=== PATIENT | male | born 1935 | race Caucasian/White ===

== ENCOUNTER 2021-06-10 05:51 | Day surgery (SDC) | payer OTHER ==
[~2021-06-10] VITALS: Ht 170.2 cm; Wt 88.0 kg
[2021-06-10] MEDS ORDERED: ELIQUIS5 M2 PO (06:37)
[2021-06-10] MEDS ORDERED: METF500 PO (06:37)
--- NOTE | 2021-06-10 08:55 | NUR ---
PT SITTING UP RECLINER. RIGHT RADIAL TR BAND SITE SOFT NON-TENDER WITH NO HEMATOMA, NO PULSATILE BLEEDING AND WRIST BOARD IN PLACE. PT DRINKING COFFEE. PT DENIES CHEST PAIN. CALL LIGHT IN REACH.
--- NOTE | 2021-06-10 10:01 | NUR ---
11 CC OF AIR REMOVED OVER SEVEN MIN. FROM NOW DEFLATED R TR BAND; SOFT NO HEMATOMA, NO PULSATILE BLEEDING WITH WRIST BOARD IN PLACE. DISCHARGE INSTRUCTIONS REVIEWED AND ALL QUESTIONS ANSWERED.
--- NOTE | 2021-06-10 11:00 | NUR ---
DEFLATED R TR BAND REMOVED AND POLYMEM PLACED OVER RIGHT RADIAL SITE WITH WRIST BOARD IN PLACE - NO HEMATOMA, NO PULSATILE BLEEDING SOFT. 20 G IV REMOVED FROM LEFT AC WITH INTACT CANNULA. PT ESCORTED OUT VIA WHEELCHAIR ESCORT.
== END 2021-06-10 11:00 | disposition home or self-care (01) ==
LOC: MHTC 05:51
DX: I25.10 Atherosclerotic heart disease of native coronary artery without angina pectoris (principal); I48.19 Other persistent atrial fibrillation; E11.9 Type 2 diabetes mellitus without complications; I10 Essential (primary) hypertension; Z79.01 Long term (current) use of anticoagulants; Z87.891 Personal history of nicotine dependence; Z88.8 Allergy status to other drugs, medicaments and biological substances; E66.9 Obesity, unspecified; Z68.31 Body mass index [BMI] 31.0-31.9, adult
CPT/HCPCS: 76937; 85347; 93454; 93571; 99152; 99153; A9270; C1769; C1887; C1894; J1644; J2250; J3010; J7030; J7050; Q9967

== ENCOUNTER 2021-09-13 03:51 | Emergency (ER) | payer OTHER ==
[~2021-09-13] VITALS: Ht 167.6 cm; Wt 85.3 kg
[~2021-09-13 03:51] MED LIST: ELIQUIS5 M2 PO; METF500 PO
[2021-09-13] MEDS ORDERED: AMLODIPINE BESYL5 MG PO (04:30)
[2021-09-13] MEDS ORDERED: ATORVASTATIN CA20 MG PO (04:30)
[2021-09-13] MEDS ORDERED: DICLOFENAC SOD100 G1 TP (04:30)
[2021-09-13] MEDS ORDERED: LOSA25 (04:31)
[2021-09-13] MEDS ORDERED: METO25ER (04:31)
[2021-09-13] MEDS ORDERED: HYDCHL25 PO (04:31)
[2021-09-13 04:57] LABS: Source, Urine Clean Catch
[2021-09-13 04:59] LABS: BASOPHILS ABSOLUTE AUTO 0.03 K/mm3 (0.00-0.23); BASOPHILS PERCENT AUTO 0 % (0-2); EOSINOPHILS ABSOLUTE AUTO 0.09 K/mm3 (0.00-0.68); EOSINOPHILS PERCENT AUTO 1 % (0-6); Hematocrit 39.6 % (37.0-53.0); Hemoglobin 12.4 g/dL (13.5-17.5); IMMATURE GRAN ABSOLUTE AUTO 0.02 K/mm3 (0.00-0.10); IMMATURE GRAN PERCENT AUTO 0 % (0-1); LYMPHOCYTES ABSOLUTE AUTO 1.08 K/mm3 (0.84-5.20); LYMPHOCYTES PERCENT AUTO 13 % (21-46); MONOCYTES ABSOLUTE AUTO 0.58 K/mm3 (0.16-1.47); MONOCYTES PERCENT AUTO 7 % (4-13); Mean Corpuscular HGB 29.7 pg (26.0-34.0); Mean Corpuscular HGB Conc 31.3 g/dL (31.5-36.5); Mean Corpuscular Volume 95 fL (80-100); Mean Platelet Volume 10.2 fL (9.1-12.4); NEUTROPHILS ABSOLUTE AUTO 6.24 K/mm3 (1.96-9.15); NEUTROPHILS PERCENT AUTO 78 % (41-73); Platelet Count 236 K/mm3 (150-400); RDW Standard Deviation 52.3 fL (35.1-46.3); Red Blood Cell Count 4.18 M/mm3 (4.30-5.90); White Blood Cell Count 8.04 K/mm3 (4.00-11.30)
[2021-09-13 05:15] LABS: Albumin, Blood 4.1 g/dL (3.4-5.0); Bilirubin, Total 0.8 mg/dL (0.1-1.0); Bun/Creatinine Ratio 18.8 (12.0-20.0); Calcium, Blood 9.6 mg/dL (8.5-10.1); Creatinine, Blood 1.17 mg/dL (0.60-1.20); Globulin, Blood 4.2 g/dL (2.2-4.0); Potassium, Blood 3.6 mmol/L (3.5-5.5); Total Protein, Blood 8.3 g/dL (6.4-8.2)
[2021-09-13 05:27] LABS: Bilirubin, Urine Neg (Neg); Blood, Urine 4+ (Neg); Glucose Qualitative, Urine 4+ (Neg); Ketones, Urine 1+ (Neg); Leukocyte Esterase, Urine Neg (Neg); Nitrite, Urine Neg (Neg); Protein, Urine 1+ (Neg); Specific Gravity, Urine 1.015 (1.003-1.022); Urobilinogen, Urine NORM (Normal)
[2021-09-13 05:31] LABS: Magnesium, Blood 2.2 mg/dL (1.6-2.4)
[2021-09-13 05:38] LABS: Appearance, Urine Clear (Clear); Bacteria Few /hpf; Color, Urine Yellow (P-Yellow); Red Blood Cells, Urine 25-50 /hpf (0-2); Squamous Epithelial Cells Rare /hpf (Few)
[2021-09-13] MEDS ORDERED: POTA10T PO (08:28)
[2021-09-13] MEDS ORDERED: FURO20 PO (08:28)
== END 2021-09-13 08:45 | disposition home or self-care (01) ==
LOC: ER 03:51
PROVIDERS: Student in an Organized Health Care Education/Training Program
DX: I48.91 Unspecified atrial fibrillation (principal); I50.9 Heart failure, unspecified; Z88.8 Allergy status to other drugs, medicaments and biological substances; Z79.899 Other long term (current) drug therapy; Z79.84 Long term (current) use of oral hypoglycemic drugs; Z95.5 Presence of coronary angioplasty implant and graft
CPT/HCPCS: 36415; 71046; 80053; 81001; 83735; 83880; 84484; 85025; 93005; 93010; J1940

== ENCOUNTER 2021-09-17 22:54 | Observation (INO) | payer OTHER ==
[~2021-09-17] VITALS: Ht 167.6 cm; Wt 84.6 kg
[~2021-09-17 22:54] MED LIST changes: +AMLODIPINE BESYL5 MG PO; +ATORVASTATIN CA20 MG PO; +DICLOFENAC SOD100 G1 TP; +FURO20 PO; +HYDCHL25 PO; +LOSA25; +METO25ER; +POTA10T PO
[2021-09-17 23:27] LABS: BASOPHILS ABSOLUTE AUTO 0.03 K/mm3 (0.00-0.23); BASOPHILS PERCENT AUTO 0 % (0-2); EOSINOPHILS ABSOLUTE AUTO 0.01 K/mm3 (0.00-0.68); EOSINOPHILS PERCENT AUTO 0 % (0-6); Hematocrit 38.3 % (37.0-53.0); Hemoglobin 12.2 g/dL (13.5-17.5); IMMATURE GRAN ABSOLUTE AUTO 0.03 K/mm3 (0.00-0.10); IMMATURE GRAN PERCENT AUTO 0 % (0-1); LYMPHOCYTES PERCENT AUTO 17 % (21-46); MONOCYTES ABSOLUTE AUTO 0.69 K/mm3 (0.16-1.47); MONOCYTES PERCENT AUTO 9 % (4-13); Mean Corpuscular HGB 30.1 pg (26.0-34.0); Mean Corpuscular HGB Conc 31.9 g/dL (31.5-36.5); Mean Corpuscular Volume 95 fL (80-100); Mean Platelet Volume 10.6 fL (9.1-12.4); NEUTROPHILS PERCENT AUTO 73 % (41-73); Platelet Count 265 K/mm3 (150-400); RDW Coefficient Variation 14.7 % (11.7-14.2); RDW Standard Deviation 51.3 fL (35.1-46.3); Red Blood Cell Count 4.05 M/mm3 (4.30-5.90); White Blood Cell Count 7.76 K/mm3 (4.00-11.30)
[2021-09-17 23:41] LABS: Albumin, Blood 3.6 g/dL (3.4-5.0); Albumin/Globulin Ratio 0.9 (0.8-1.8); Bilirubin, Total 0.9 mg/dL (0.1-1.0); Bun/Creatinine Ratio 25.5 (12.0-20.0); Calcium, Blood 9.1 mg/dL (8.5-10.1); Creatinine, Blood 1.96 mg/dL (0.60-1.20); Globulin, Blood 3.8 g/dL (2.2-4.0); Potassium, Blood 3.9 mmol/L (3.5-5.5); Total Protein, Blood 7.4 g/dL (6.4-8.2)
--- NOTE | 2021-09-18 03:54 | NUR ---
SHIFT SUMMARY PT ER ADMIT THIS SHIFT FOR CHF EXACERBATION. ADMISSION IS COMPLETE. PT IS ON RA AT THIS TIME, SATS WNL. RESP E/U. LUNGS ARE DIMINISHED, HE DENIES SOB AT THIS TIME AND STATES ONLY WITH EXERTION. PT RECEIVED 40 MG OF LASIKS IN THE ER. PT AFIB ON TELE RATE IS CONTROLLED IN THE LOW 100'S, PT HAS HX OF AFIB. PT IS SETTLED IN BED, HE HAS BEEN PROVIDED WITH SNACKS AND BEVERAGES PER HIS REQUEST. HE DENIES PAIN. BED IN LOWEST POSITION, CALL AKHIL LANDRY.
[2021-09-18 04:44] LABS: BASOPHILS ABSOLUTE AUTO 0.03 K/mm3 (0.00-0.23); BASOPHILS PERCENT AUTO 0 % (0-2); EOSINOPHILS ABSOLUTE AUTO 0.02 K/mm3 (0.00-0.68); EOSINOPHILS PERCENT AUTO 0 % (0-6); Hematocrit 38.5 % (37.0-53.0); Hemoglobin 12.5 g/dL (13.5-17.5); IMMATURE GRAN ABSOLUTE AUTO 0.02 K/mm3 (0.00-0.10); IMMATURE GRAN PERCENT AUTO 0 % (0-1); LYMPHOCYTES PERCENT AUTO 13 % (21-46); MONOCYTES PERCENT AUTO 10 % (4-13); Mean Corpuscular HGB 30.3 pg (26.0-34.0); Mean Corpuscular HGB Conc 32.5 g/dL (31.5-36.5); Mean Corpuscular Volume 93 fL (80-100); Mean Platelet Volume 10.6 fL (9.1-12.4); NEUTROPHILS ABSOLUTE AUTO 6.04 K/mm3 (1.96-9.15); NEUTROPHILS PERCENT AUTO 76 % (41-73); Platelet Count 256 K/mm3 (150-400); RDW Coefficient Variation 14.7 % (11.7-14.2); RDW Standard Deviation 50.3 fL (35.1-46.3); Red Blood Cell Count 4.13 M/mm3 (4.30-5.90); White Blood Cell Count 7.91 K/mm3 (4.00-11.30)
[2021-09-18 05:02] LABS: Albumin, Blood 3.6 g/dL (3.4-5.0); Bilirubin, Total 0.8 mg/dL (0.1-1.0); Bun/Creatinine Ratio 27.8 (12.0-20.0); Calcium, Blood 9.3 mg/dL (8.5-10.1); Creatinine, Blood 1.87 mg/dL (0.60-1.20); Globulin, Blood 3.7 g/dL (2.2-4.0); Potassium, Blood 3.5 mmol/L (3.5-5.5); Total Protein, Blood 7.3 g/dL (6.4-8.2)
--- NOTE | 2021-09-18 17:56 | NUR ---
PATIENT STATES WHEN HE TRIES TO REST, OR WHEN HE "NODS OFF" HE BECMES SOB. HE STATES THAT HE DOES USE A CPAP AT HOME. CALL PLACED TO PROVIDER WHO ORDERED CPAP AND PROTOCOL OXYGEN. PATIENTS FAMILY UNABLE TO BRING HOME CPAP-RT NOTIFIED. STATES THAT THEY WILL LET RT ANIRUDH KNOW AND SHE WILL COME SET UP A CPAP FOR OUR PATIENT. CURRENTLY PATIENT IS RESTING, AFTER A BUSY DAY WITH COMPANY. HE IS USING O2 AT 2 L NC DURING REST. LS SOUND DIMINISHED, BUT NOT TO WET. XRAY DOES ENDORSE SOME FLUID IN LUNG. PATIENT HAS QUESTIONS ABOUT HIS HOME METFORMIN DOSE "4000MG DAILY" (NOT RECEIVING METFORMIN HERE DUE TO KIDNEY FUNCTION PER DR. ALY, BUT INSTEAD RECEIVING INSULIN WHICH HE NORMALLY DOSEN'T TAKE AT HOME). PATIENT HAS NO OTHER MEDICAL CONCERNS.
[2021-09-19 05:08] LABS: Hematocrit 38.2 % (37.0-53.0); Hemoglobin 12.4 g/dL (13.5-17.5); Mean Corpuscular HGB 30.2 pg (26.0-34.0); Mean Corpuscular HGB Conc 32.5 g/dL (31.5-36.5); Mean Corpuscular Volume 93 fL (80-100); Mean Platelet Volume 10.2 fL (9.1-12.4); Platelet Count 256 K/mm3 (150-400); RDW Coefficient Variation 14.8 % (11.7-14.2); Red Blood Cell Count 4.11 M/mm3 (4.30-5.90); White Blood Cell Count 8.12 K/mm3 (4.00-11.30)
--- NOTE | 2021-09-19 05:26 | NUR ---
SHIFT SUMMARY NOC: PT SLEPT MOST OF NIGHT. PT PLEASANT AND COMPLIANT WITH CARE. 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
[2021-09-19 06:05] LABS: Bun/Creatinine Ratio 35.2 (12.0-20.0); Calcium, Blood 9.2 mg/dL (8.5-10.1); Creatinine, Blood 1.59 mg/dL (0.60-1.20); Potassium, Blood 3.3 mmol/L (3.5-5.5)
--- NOTE | 2021-09-19 10:07 | NUR ---
ANESTHESIOLOGY TECH JUST CALLED AND REPORTED PATIENT HAD A RUN 160 V-TACK. PATIENT IS OKAY, USING THE BR AT THIS TIME AND REPORTS NO PROBLEM. HE DID JUST TAKE K-DUR 40, ABOUT 20 MINUTES AGO AND IS HAVING A BOWEL MOVEMENT AT THIS TIME.
--- NOTE | 2021-09-19 17:24 | NUR ---
DISCHARGE- PATIENT RECEIVED DISCHARGE INSTRUCTIONS INCLUDING MEDICATION DIRECTION, FOLLOW APPOINTMENTS TO BE SCHEDULED AND INFORMATION ABOUT HIS CHF. IV WAS REMOVED WITHOUT CONCERN. PATIENT WAS WHEELED DOWN TO THE EXIT WHERE FAMILY WAS WAITING TO TRANSPORT HOME. HE LEFT THE FACILITY APROX [id number].
== END 2021-09-19 16:48 | disposition home or self-care (01) ==
LOC: ER 22:54 → MEDS 22:55
PROVIDERS: Internal Medicine; Student in an Organized Health Care Education/Training Program; ADMIT Family Medicine
DX: I13.0 Hypertensive heart and chronic kidney disease with heart failure and stage 1 through stage 4 chronic kidney disease, or unspecified chronic kidney disease (principal); E11.22 Type 2 diabetes mellitus with diabetic chronic kidney disease; I50.23 Acute on chronic systolic (congestive) heart failure; N17.9 Acute kidney failure, unspecified; E87.1 Hypo-osmolality and hyponatremia; N18.2 Chronic kidney disease, stage 2 (mild); D64.9 Anemia, unspecified; I48.19 Other persistent atrial fibrillation; Z79.01 Long term (current) use of anticoagulants; Z79.4 Long term (current) use of insulin; Z88.8 Allergy status to other drugs, medicaments and biological substances
CPT/HCPCS: 36415; 71045; 80048; 80053; 82947; 83880; 84145; 84484; 85025; 85027; 93005; 93010; 94760; 96374; 99285-25; A9270; J1815; J1940

== ENCOUNTER → 2022-01-02 | Outpatient (CLI) | payer OTHER ==
[~2022-01-02] MED LIST changes: +CARV6.25 PO; +SPIR25 PO; +TORSE20 PO
[2022-01-02 13:45] LABS: BASOPHILS ABSOLUTE AUTO 0.03 K/mm3 (0.00-0.23); BASOPHILS PERCENT AUTO 1 % (0-2); EOSINOPHILS ABSOLUTE AUTO 0.05 K/mm3 (0.00-0.68); EOSINOPHILS PERCENT AUTO 1 % (0-6); Hematocrit 32.9 % (37.0-53.0); Hemoglobin 10.8 g/dL (13.5-17.5); IMMATURE GRAN ABSOLUTE AUTO 0.03 K/mm3 (0.00-0.10); IMMATURE GRAN PERCENT AUTO 1 % (0-1); LYMPHOCYTES ABSOLUTE AUTO 0.86 K/mm3 (0.84-5.20); LYMPHOCYTES PERCENT AUTO 15 % (21-46); MONOCYTES PERCENT AUTO 7 % (4-13); Mean Corpuscular HGB 31.9 pg (26.0-34.0); Mean Corpuscular HGB Conc 32.8 g/dL (31.5-36.5); Mean Corpuscular Volume 97 fL (80-100); Mean Platelet Volume 10.1 fL (9.1-12.4); NEUTROPHILS PERCENT AUTO 77 % (41-73); Platelet Count 275 K/mm3 (150-400); RDW Coefficient Variation 14.6 % (11.7-14.2); RDW Standard Deviation 51.1 fL (35.1-46.3); Red Blood Cell Count 3.39 M/mm3 (4.30-5.90); White Blood Cell Count 5.87 K/mm3 (4.00-11.30)
[2022-01-02 13:59] LABS: Albumin, Blood 3.5 g/dL (3.4-5.0); Albumin/Globulin Ratio 0.8 (0.8-1.8); Bilirubin, Total 0.6 mg/dL (0.1-1.0); Bun/Creatinine Ratio 34.2 (12.0-20.0); Calcium, Blood 9.2 mg/dL (8.5-10.1); Creatinine, Blood 1.14 mg/dL (0.60-1.20); Globulin, Blood 4.5 g/dL (2.2-4.0); Potassium, Blood 3.9 mmol/L (3.5-5.5)
== END | disposition home or self-care (01) ==
LOC: LAB SHORT 12:26
PROVIDERS: Internal Medicine Hematology & Oncology
DX: C67.9 Malignant neoplasm of bladder, unspecified (principal)
CPT/HCPCS: 80053; 85025

== ENCOUNTER 2022-04-13 11:34 | Day surgery (SDC) | payer OTHER ==
[~2022-04-13] VITALS: Ht 167.6 cm; Wt 76.9 kg
[2022-04-13] MEDS ORDERED: ELIQUIS2.5 MG (11:54)
[2022-04-13] MEDS ORDERED: DILT120 (11:54)
[2022-04-13] MEDS ORDERED: ATOR20 (11:54)
[2022-04-13] MEDS ORDERED: Norco 10-325 T1 EACH (11:54)
[2022-04-13] MEDS ORDERED: AMLO5 (11:54)
[2022-04-13] MEDS ORDERED: JARDIANCE25 MG (11:55)
[2022-04-13] MEDS ORDERED: FURO20 ×2 (11:55→11:56)
[2022-04-13] MEDS ORDERED: ONDA8 (11:56)
[2022-04-13] MEDS ORDERED: POTA10T (11:57)
[2022-04-13] MEDS ORDERED: Pyridium100 MG (11:57)
[2022-04-13] MEDS ORDERED: TAMS.4ER (11:57)
== END 2022-04-13 13:41 | disposition home or self-care (01) ==
LOC: ORSCSDS 11:34
PROVIDERS: Ophthalmology
PROC: 08RJ3JZ Replacement of Right Lens with Synthetic Substitute, Percutaneous Approach (ICD-10-PCS; principal; 2022-04-13 13:00)
DX: H25.11 Age-related nuclear cataract, right eye (principal); H21.81 Floppy iris syndrome; I10 Essential (primary) hypertension; I25.10 Atherosclerotic heart disease of native coronary artery without angina pectoris; G47.33 Obstructive sleep apnea (adult) (pediatric); I48.91 Unspecified atrial fibrillation; Z79.01 Long term (current) use of anticoagulants; Z79.899 Other long term (current) drug therapy
CPT/HCPCS: 82947; J2001; J2250; J3010; J3301; V2632

== ENCOUNTER 2022-05-04 12:15 | Day surgery (SDC) | payer OTHER ==
[~2022-05-04] VITALS: Ht 167.6 cm; Wt 73.7 kg
[~2022-05-04 12:15] MED LIST changes: +AMLO5; +ATOR20; +DILT120; +ELIQUIS2.5 MG; +FURO20; +JARDIANCE25 MG; +METO25ER PO; +Norco 10-325 T1 EACH; +ONDA8; +POTA10T; +Pyridium100 MG; +TAMS.4ER
--- NOTE | 2022-05-04 13:42 | NUR ---
05/04/22 1342 Christina Padilla IN AT 1319 ANIRUDH IN AT 1321
== END 2022-05-04 14:58 | disposition home or self-care (01) ==
LOC: ORSCSDS 12:15
PROVIDERS: Ophthalmology
PROC: 08RK3JZ Replacement of Left Lens with Synthetic Substitute, Percutaneous Approach (ICD-10-PCS; principal; 2022-05-04 13:30)
DX: H25.12 Age-related nuclear cataract, left eye (principal); H21.81 Floppy iris syndrome; I10 Essential (primary) hypertension; I25.10 Atherosclerotic heart disease of native coronary artery without angina pectoris; E11.9 Type 2 diabetes mellitus without complications; G47.33 Obstructive sleep apnea (adult) (pediatric); Z79.899 Other long term (current) drug therapy; Z79.01 Long term (current) use of anticoagulants; Z85.46 Personal history of malignant neoplasm of prostate
CPT/HCPCS: 82947; J2001; J2250; J3010; J3301; J7040; V2632

== ENCOUNTER → 2023-03-02 | Outpatient (CLI) | payer OTHER ==
[2023-03-02 15:43] LABS: Source, Urine Voided
[2023-03-02 16:26] LABS: White Blood Cells, Urine TNTC /hpf (0-5)
[2023-03-02 16:27] LABS: Bacteria Mod /hpf; Red Blood Cells, Urine 50-100 /hpf (0-2); Squamous Epithelial Cells Not Seen /hpf (Few); Yeast/Fungi Urine Mod /hpf
== END | disposition home or self-care (01) ==
LOC: LAB 15:41 → LAB SHORT 15:41
PROVIDERS: Internal Medicine Nephrology
DX: N39.0 Urinary tract infection, site not specified (principal)
CPT/HCPCS: 81015; 87086

== ENCOUNTER 2023-04-04 15:50 | Emergency (ER) | payer OTHER ==
[~2023-04-04] VITALS: Ht 165.1 cm; Wt 76.2 kg
[~2023-04-04 15:50] MED LIST changes: +Lasix20 MG PO
[2023-04-04 16:10] LABS: Source, Urine Clean Catch
[2023-04-04 16:29] LABS: BASOPHILS ABSOLUTE AUTO 0.03 K/mm3 (0.00-0.23); BASOPHILS PERCENT AUTO 1 % (0-2); EOSINOPHILS PERCENT AUTO 3 % (0-6); Hematocrit 26.6 % (37.0-53.0); IMMATURE GRAN ABSOLUTE AUTO 0.03 K/mm3 (0.00-0.10); IMMATURE GRAN PERCENT AUTO 1 % (0-1); LYMPHOCYTES ABSOLUTE AUTO 0.73 K/mm3 (0.84-5.20); LYMPHOCYTES PERCENT AUTO 20 % (21-46); MONOCYTES ABSOLUTE AUTO 0.65 K/mm3 (0.16-1.47); MONOCYTES PERCENT AUTO 18 % (4-13); Mean Corpuscular HGB Conc 30.1 g/dL (31.5-36.5); Mean Corpuscular Volume 103 fL (80-100); Mean Platelet Volume 11.2 fL (9.1-12.4); NEUTROPHILS ABSOLUTE AUTO 2.04 K/mm3 (1.96-9.15); NEUTROPHILS PERCENT AUTO 57 % (41-73); Platelet Count 327 K/mm3 (150-400); RDW Coefficient Variation 23.8 % (11.7-14.2); RDW Standard Deviation 88.4 fL (35.1-46.3); Red Blood Cell Count 2.58 M/mm3 (4.30-5.90); White Blood Cell Count 3.58 K/mm3 (4.00-11.30)
[2023-04-04 16:50] LABS: Bilirubin, Urine Neg (Neg); Blood, Urine 5+ (Neg); Glucose Qualitative, Urine 3+ (Neg); Ketones, Urine Neg (Neg); Leukocyte Esterase, Urine 3+ (Neg); Nitrite, Urine Neg (Neg); Protein, Urine 3+ (Neg); Urobilinogen, Urine NORM (Normal); pH, Urine 6.5 (5.0-8.0)
[2023-04-04 17:05] LABS: Appearance, Urine Cloudy (Clear); Color, Urine Red (P-Yellow)
[2023-04-04 17:06] LABS: Bacteria Mod /hpf; Red Blood Cells, Urine TNTC /hpf (0-2); Squamous Epithelial Cells Few /hpf (Few); White Blood Cells, Urine 25-50 /hpf (0-5)
[2023-04-04 17:24] LABS: Albumin, Blood 2.5 g/dL (3.4-5.0); Albumin/Globulin Ratio 0.5 (0.8-1.8); Bilirubin, Total 0.5 mg/dL (0.1-1.0); Bun/Creatinine Ratio 21.7 (12.0-20.0); Calcium, Blood 8.6 mg/dL (8.5-10.1); Creatinine, Blood 2.07 mg/dL (0.60-1.20); Globulin, Blood 5.2 g/dL (2.2-4.0); Potassium, Blood 5.8 mmol/L (3.5-5.5); Total Protein, Blood 7.7 g/dL (6.4-8.2)
[2023-04-04 20:00] LABS: Chloride (POC) 107 mmol/L (98-108); Creatinine (POC) 2.2 mg/dL (0.8-1.3); Glucose (ISTAT POC) 271 mg/dL (70-99); Hemoglobin (POC) 11.6 g/dL (13.5-17.5); Potassium (POC) 4.8 mmol/L (3.5-5.5); Sodium (POC) 132 mmol/L (135-148); Total CO2 (POC) 21 mmol/L (21-32)
[2023-04-04 20:07] VITALS: BP 154/70
[2023-04-04] MEDS ORDERED: CEPH500 PO (20:14)
== END 2023-04-04 20:32 | disposition home or self-care (01) ==
LOC: ER 15:50
PROVIDERS: Physician Assistant; Student in an Organized Health Care Education/Training Program
DX: K92.1 Melena (principal); C67.9 Malignant neoplasm of bladder, unspecified; N39.0 Urinary tract infection, site not specified; I11.0 Hypertensive heart disease with heart failure; I50.9 Heart failure, unspecified; I48.91 Unspecified atrial fibrillation; Z79.01 Long term (current) use of anticoagulants; Z79.84 Long term (current) use of oral hypoglycemic drugs; Z79.899 Other long term (current) drug therapy
CPT/HCPCS: 80047; 80053; 81001; 82272; 83690; 83735; 83880; 85014; 85025; 86850; 86900; 86901; 87077; 87086; 87186; 93005; 93010; 96374; 96375; 99283-25; J1815; J7799

== ENCOUNTER 2023-05-24 17:23 | Emergency (ER) | payer OTHER ==
[~2023-05-24] VITALS: Ht 167.6 cm; Wt 72.6 kg
[~2023-05-24 17:23] MED LIST changes: +CEPH500 PO
[2023-05-24 18:27] LABS: Hematocrit 29.6 % (37.0-53.0); Hemoglobin 8.8 g/dL (13.5-17.5); Mean Corpuscular HGB 29.9 pg (26.0-34.0); Mean Corpuscular HGB Conc 29.7 g/dL (31.5-36.5); Mean Corpuscular Volume 101 fL (80-100); Mean Platelet Volume 10.9 fL (9.1-12.4); Platelet Count 366 K/mm3 (150-400); RDW Standard Deviation 76.8 fL (35.1-46.3); Red Blood Cell Count 2.94 M/mm3 (4.30-5.90); White Blood Cell Count 7.68 K/mm3 (4.00-11.30)
[2023-05-24 18:48] LABS: BASOPHILS PERCENT MAN 0 % (0-2); EOSINOPHILS ABSOLUTE MAN 0.07 K/mm3 (0.00-0.68); EOSINOPHILS PERCENT MAN 1 % (0-6); LYMPHOCYTES % ATYPICAL MANUAL 2 % (0-0); LYMPHOCYTES ABSOLUTE MAN 1.53 K/mm3 (0.84-5.20); LYMPHOCYTES PERCENT MAN 18 % (21-46); MONOCYTES ABSOLUTE MAN 0.61 K/mm3 (0.16-1.47); MONOCYTES PERCENT MAN 8 % (4-13); NEUTROPHILS ABSOLUTE MAN 5.45 K/mm3 (1.96-9.15); SEG NEUTROPHILS PERCENT MAN 71 % (41-73); TOTAL CELLS COUNTED 100
[2023-05-24 18:49] LABS: Albumin, Blood 2.1 g/dL (3.4-5.0); Albumin/Globulin Ratio 0.4 (0.8-1.8); Bilirubin, Total 0.6 mg/dL (0.1-1.0); Bun/Creatinine Ratio 16.2 (12.0-20.0); Calcium, Blood 8.1 mg/dL (8.5-10.1); Creatinine, Blood 2.59 mg/dL (0.60-1.20); Potassium, Blood 4.1 mmol/L (3.5-5.5); Total Protein, Blood 7.1 g/dL (6.4-8.2)
[2023-05-24 21:45] VITALS: BP 108/58
[2023-05-25] MEDS ORDERED: FERSU300 PO (11:10)
[2023-05-25] MEDS ORDERED: Amiodarone HCl200 MG PO (11:13)
[2023-05-25] MEDS ORDERED: GABA300 PO (11:14)
[2023-05-25] MEDS ORDERED: LOSA50 PO (11:15)
[2023-05-25] MEDS ORDERED: LIDO700A20 TOP (11:43)
[2023-05-25] MEDS ORDERED: BELBUCA150 MCG BC (11:43)
== END 2023-05-25 13:48 ==
LOC: ER 17:23
PROVIDERS: Student in an Organized Health Care Education/Training Program
DX: S46.912A Strain of unspecified muscle, fascia and tendon at shoulder and upper arm level, left arm, initial encounter (principal); N18.9 Chronic kidney disease, unspecified; R91.8 Other nonspecific abnormal finding of lung field; I13.0 Hypertensive heart and chronic kidney disease with heart failure and stage 1 through stage 4 chronic kidney disease, or unspecified chronic kidney disease; I50.9 Heart failure, unspecified; Z88.8 Allergy status to other drugs, medicaments and biological substances; Z79.899 Other long term (current) drug therapy; Z79.84 Long term (current) use of oral hypoglycemic drugs; Z79.891 Long term (current) use of opiate analgesic; I48.91 Unspecified atrial fibrillation
CPT/HCPCS: 80053; 84484; 85025; 93005; 93010; A9270